=== PATIENT | female | born 1980 | race Caucasian/White ===

== ENCOUNTER 2018-05-17 19:19 | Emergency (ER) | payer SELFPAY ==
[2018-05-17 19:19] VITALS: BP 160/96; PULSE 96; RESP 20; TEMP 37; O2SAT 98; BMI 42.8
--- NOTE | 2018-05-17 19:51 | ED.DCSUM_ITS ---
- ER Visit Summary Date of Service: 05/17/18 Chief Complaint: Sore throat ear pain History of Present Illness: The patient is a 37 F 1 week history of sore throat. Bilateral ear pain today. Sinus pressure and congestion. Nonproductive cough. Subjective fevers. Sick contacts at home. No vomiting or diarrhea. No rash. Tonsillectomy at the age of 16. Physical Examination: General: Alert and oriented ?3, no acute distress HEENT: Normocephalic, atraumatic. Moist mucosa membranes. TMs normal bilaterally. Tonsils absent, posterior pharyngeal erythema. No stridor. No trismus Neck: supple, nontender. Cardiovascular: Regular rate and rhythm, no murmurs Respiratory: Normal breath sounds, symmetric, no distress Abdomen: Soft, nontender, nondistended Extremities: Nontender, no edema, pulses intact ?4 Neuro: no focal neurological deficits. Test Results: Rapid strep: Positive Emergency Department Course and Treatment: Rapid strep positive. Nontoxic. Treated with IM Bicillin. Patient did not want steroids due to having psychosis from it. Also additional URI symptoms. Symptomatic treatment. Follow-up with PCP. Treatment Plan: [] Disposition: Discharge Impression: 1. Strep pharyngitis 2. Upper respiratory infection This note was generated with [employer] dictation software. It may contain incorrect words, spelling, and punctuation that were not noted in review of the chart prior to signing ED Disposition - Plan for ED Patient: Disposition: Home or Assisted Living Chief Complaint: Ear Problem Diagnosis: Strep pharyngitis, Upper respiratory infection Instructions: ED Pharyngitis Strep Conf Ch, ED URI Viral Referrals: Violette Hemphill DO [NON CLINICAL AFFILIATE] - 5-7 Days
[2018-05-17] MEDS: Penicillin G Benzathine 1.2 MU/2 ML Syringe IM (20:43)
[2018-05-17 21:10] VITALS: RESP 16
--- NOTE | 2018-05-17 21:10 | ED.RN ---
no injection reaction.
== END 2018-05-17 21:11 | disposition home or self-care (01) ==
PROVIDERS: Emergency Provider Emergency Medicine; Family Provider Internal Medicine; PCP Internal Medicine
DX: J02.0 Streptococcal pharyngitis (principal); J06.9 Acute upper respiratory infection, unspecified; K21.9 Gastro-esophageal reflux disease without esophagitis; F32.9 Major depressive disorder, single episode, unspecified; Z79.899 Other long term (current) drug therapy
CPT/HCPCS: 87880; 96372; 99282

== ENCOUNTER 2019-11-09 23:41 | Emergency (ER) | payer MEDICAID, SELFPAY ==
[2019-11-09 23:42] VITALS: BP 167/108; PULSE 90; RESP 18; TEMP 37.2; O2SAT 99; BMI 44.3
--- NOTE | 2019-11-10 00:03 | ED.VIS.GEN ---
History of Present Illness Chief Complaint: Nausea/Vomiting Informant: Patient Narrative: Patient presents after having 1 episode of emesis. She is being treated for a clinical pneumonia. She has been on doxycycline as well as Tessalon Perles. She stated she took 8 medications together tonight and felt nauseous soon after and vomited. She wanted to make sure things are okay. She stated her pneumonia is getting better. This was diagnosed at urgent care. She did not have any imaging. She is a non-smoker. No fevers or chills or other symptoms. She does not feel nauseous that much currently. Past Medical History - Allergies and Home Meds Allergies/Adverse Reactions: Allergies erythromycin base [Erythromycin Base] Allergy (Verified 11/09/19 23:44) Vomiting levothyroxine Allergy (Verified 11/09/19 23:45) Rash Primary Care Physician: Ella Abel MD [Primary Care Provider] - Prior records reviewed: Yes Past Medical History: - - Reflux Surgical History: tonsillectomy Lives: With Family Smoking Status: Never smoker Alcohol: None Drugs: None Review of Systems General: Denies: Chills, Fever, Sweats Eyes: Denies: Visual changes - bilaterally, Diplopia ENT: Denies: Rhinorrhea, Sore throat Cardiovascular: Denies: Chest pain, Palpitations Respiratory: Reports: Cough. Denies: Dyspnea, Dyspnea on exertion Gastrointestinal: Reports: Nausea, Vomiting. Denies: Abdominal pain, Diarrhea, Melena, Hematochezia Genitourinary: Denies: Dysuria, Hematuria, Frequency Musculoskeletal: Denies: Back pain, Extremity Pain Skin: Denies: Rash, Wounds Neurological: Denies: Headache, Weakness, Numbness Physical Exam Vital Signs/Narrative: Vital Signs Temp Pulse Resp BP Pulse Ox 11/09/19 23:42 98.9 F 90 18 167/108 H 99 General: Well nourished, Well developed, No Acute Distress Head: Normocephalic, Atraumatic Eyes: Perrl, EOMI ENT: Moist mucous membranes, No rhinorrhea Neck: Supple, Nontender Cardiovascular: Regular rate, Regular rhythm, No murmurs Respiratory: No distress, CTA bilaterally, Chest nontender Abdomen: Soft, Nontender, Nondistended, Normal bowel sounds Back: Nontender, Normal Inspection Extremities: Nontender, No edema Skin: Normal color, No rash Neurological: Alert, Oriented x3, Cranial nerves II-XII grossly intact, Normal Strength, Normal Sensation Psychological: Normal affect, Normal Mood Diagnostic/Tx/Re-eval - Medical Decision Making This time I think the patient likely has nausea from taking all her medications at once. She took 8 pills. She was given Zofran. I do not feel she needs lab work or imaging. She will follow-up as an outpatient ED Disposition - Plan for ED Patient: Diagnosis: Vomiting alone Instructions: VOMITING (4y-Adult) Prescriptions: Ondansetron [Zofran Odt] 4 mg PO Q8H PRN PRN #10 tab PRN Reason: Nausea Prescription Printed Referrals: Ella Abel MD [Primary Care Provider] -
[2019-11-10] MEDS: Ondansetron ODT 4 MG Tablet 8 MG PO (00:18)
[2019-11-10 00:20] VITALS: RESP 16
== END 2019-11-10 00:24 | disposition home or self-care (01) ==
LOC: ED 11-10 00:13
PROVIDERS: Emergency Provider Emergency Medicine; Family Provider Nurse Practitioner Family; PCP Nurse Practitioner Family
DX: R11.10 Vomiting, unspecified (principal); K21.9 Gastro-esophageal reflux disease without esophagitis
CPT/HCPCS: 99283

== ENCOUNTER → 2020-02-07 12:44 | Outpatient (CLI) | payer MEDICAID, SELFPAY ==
--- NOTE | 2020-02-07 12:49 | CT_ITS ---
STUDY: CT MAXILLOFACIAL SINUSES REASON FOR EXAM: Female, 39 years old. Sinusitis x 6 months, right side worse, ears feel and quot;clogged and quot;, antibiotics x 8. Hx hypertension, no prior surgery. [facility] navigation protocol RADIATION DOSAGE (If Supplied By Facility): CTDIvol = ( 33.45 ) mGy, DLP = ( 793.09 ) mGycm TECHNIQUE: The patient was scanned in a multi detector CT scanner. High resolution axial imaging was performed without the administration of intravenous contrast material. Sagittal and coronal images were reconstructed. Individualized dose optimization techniques were used for this CT. COMPARISON: None. FINDINGS: FRONTAL SINUSES: Normal aeration, without mucosal inflammatory disease. ETHMOIDAL SINUSES: Partial opacification of the ethmoid sinuses worse on the right side. MAXILLARY SINUSES: Partial opacification of the maxillary sinuses bilaterally worse on the right side. SPHENOIDAL SINUSES: Normal aeration, without mucosal inflammatory disease. There is compromise of the left ostiomeatal complex due to mucosal hypertrophy on the left side. 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 There is a adriane bullosa of the right middle turbinate. Normal bilateral inferior turbinates. Normal midline nasal septum. There is patency of the bilateral nasal airways. The visualized osseous structures are normal. The visualized bilateral orbital contents are normal. CT/Sinus/Facial Bone IMPRESSION: Partial opacification of ethmoid sinuses worse on the right side. Partial opacification of maxillary sinuses worse on the right side. 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 Compromise of the ostiomeatal complexes bilaterally as described. Electronically Signed: Donato Napoles, at 13:46 EDT , Service support ,
== END ==
PROVIDERS: Referring Provider Otolaryngology; Visit Provider Otolaryngology
DX: J32.2 Chronic ethmoidal sinusitis (principal)
CPT/HCPCS: 70486

== ENCOUNTER → 2020-04-24 | Outpatient (CLI) | payer MEDICAID, SELFPAY ==
--- NOTE | 2020-04-24 14:37 | RAD_ITS ---
STUDY: X-RAY CHEST REASON FOR EXAM: Female, 39 years old. Shortness of breath. TECHNIQUE: PA and lateral views of the chest. COMPARISON: Comparison is made with prior study dated June 17, 2010. FINDINGS: The lungs are clear and expanded. There is no demonstrated pleural abnormality. Normal size heart. Normal mediastinum and huber. Normal visualized pulmonary arteries. Normal visualized aortic arch and descending thoracic aorta. There are mild degenerative changes of the visualized thoracic spine. Normal visualized ribs, clavicles, and shoulders. There is no demonstrated abnormality of the visualized soft tissue structures of the upper abdomen. RAD/Chest PA and Lateral IMPRESSION: Normal x-ray examination of the chest. Electronically Signed: Donato Napoles, at 15:32 EDT , Service support ,
[2020-04-24 15:35] LABS: Absolute Lymphocyte Count 2.75 X10^3/uL (0.83-4.51); Absolute Neutrophil Count 5.2 X10^3/uL (2.0-7.7); Basophil# 0.02 X10^3/uL; Basophil% 0.2 % (0-1); Eosinophil# 0.17 X10^3/uL; Eosinophils% 1.9 % (0-5); Hemoglobin 13.8 g/dL (12.0-15.0); Lymphocyte # 2.75 X10^3/ul (4.0); Lymphocyte % 31.5 % (19-41); Mean Corp Hgb Conc 32.1 g/dL (32-36); Mean Corpuscular Hgb 30.9 pg (27.0-32.0); Mean Corpuscular Volume 96.2 fL (81-99); Monocyte# 0.57 X10^3/uL; Monocyte% 6.5 % (0-10); NRBC Flagged by Analyzer 0 % (0-5); Neutrophil # 5.19 X10^3/uL (2.7-7.7); Neutrophil % 59.6 % (47-70); Platelet Count 311 K/mm3 (150-450); RBC Distribution Width SD 42.4 fl (35.1-43.9); Red Blood Count 4.47 M/mm3 (4.2-5.4); White Blood Count 8.7 K/mm3 (4.4-11.0)
[2020-04-24 16:03] LABS: Vitamin D,25 Hydroxy 27.8 ng/mL
[2020-04-27 20:07] LABS: Immunoglobulin A 126 mg/dL (87-352); Immunoglobulin G 942 mg/dL (586-1602); Immunoglobulin M 118 mg/dL (26-217)
[2020-04-28 00:26] LABS: Immunoglobulin E 3 IU/mL (6-495)
== END | disposition home or self-care (01) ==
PROVIDERS: Referring Provider Specialist; Visit Provider Specialist
DX: D84.9 Immunodeficiency, unspecified (principal); R05 Cough
CPT/HCPCS: 36415; 71046; 82306; 82784; 82785; 85025

== ENCOUNTER → 2020-07-31 | Outpatient (CLI) | payer MEDICAID, SELFPAY ==
[2020-08-02 14:26] LABS: Complement CH50 > 60 U/mL (>41)
== END | disposition home or self-care (01) ==
LOC: LAB 16:05
PROVIDERS: Visit Provider Specialist
DX: D84.9 Immunodeficiency, unspecified (principal)
CPT/HCPCS: 36415; 86162

== ENCOUNTER → 2021-02-07 15:33 | Outpatient (CLI) | payer MEDICAID, SELFPAY ==
[2021-02-07 17:12] LABS: Microalbumin,Random Urine 6.9 mg/L (NO RANGE EST.); Microalbumin:Creatinine Ratio 11.8 mg/g CRE (<30 mg/g CRE)
[2021-02-09 12:09] LABS: Thyroid Peroxidase AB < 9 IU/mL (0-34)
== END ==
PROVIDERS: Visit Provider Family Medicine
DX: I10 Essential (primary) hypertension (principal); E78.5 Hyperlipidemia, unspecified; F33.1 Major depressive disorder, recurrent, moderate
CPT/HCPCS: 36415; 82043; 82570; 86376

== ENCOUNTER 2022-01-27 15:55 | Outpatient (CLI) | payer MEDICAID, SELFPAY ==
[2022-01-27 17:30] LABS: Absolute Lymphocyte Count 2.69 X10^3/uL (0.83-4.51); Absolute Neutrophil Count 4.8 X10^3/uL (2.0-7.7); Basophil# 0.02 X10^3/uL; Basophil% 0.2 % (0-1); Eosinophil# 0.14 X10^3/uL; Eosinophils% 1.7 % (0-5); Hemoglobin 13.9 g/dL (12.0-15.0); Lymphocyte # 2.69 X10^3/ul (0.83-4.51); Mean Corp Hgb Conc 33.1 g/dL (32-36); Mean Corpuscular Hgb 30.4 pg (27.0-32.0); Mean Corpuscular Volume 91.9 fL (81-99); Mean Platelet Vol. 11.1 fl (6.2-12.0); Monocyte# 0.49 X10^3/uL; NRBC Flagged by Analyzer 0 % (0-5); Neutrophil # 4.78 X10^3/uL (2.7-7.7); Neutrophil % 58.7 % (47-70); Platelet Count 299 K/mm3 (150-450); RBC Distribution Width SD 40.7 fl (35.1-43.9); Red Blood Count 4.57 M/mm3 (4.2-5.4); White Blood Count 8.2 K/mm3 (4.4-11.0)
[2022-01-27 17:40] LABS: Hemoglobin A1c 5.2 % (3.8-5.6)
[2022-01-27 17:50] LABS: AST(SGOT) 16 U/L (15-37); Alanine Aminotransfer ALT/SGPT 16 U/L (13-56); Albumin, Serum 3.5 g/dL (3.2-5.0); Alkaline Phosphatase 84 U/L (45-117); Anion Gap 6 (5-15); BUN 8 mg/dL (7-18); BUN/Creat Ratio 11.2 RATIO (10-20); Chloride 107 mmol/L (98-107); Cholesterol 187 mg/dL (200); Creatinine, Serum 0.71 mg/dL (0.55-1.02); EST Glomerular Filtration Rate 95 mL/min (>60); Est Glom Filt Rate - Afr Amer 115 mL/min (>60); Globulin 3.6 g/dL (2.2-4.2); Glucose 80 mg/dL (74-106); High Density Lipoprotein 26 mg/dL; Potassium 3.8 mmol/L (3.5-5.1); Protein, Total 7.1 g/dL (6.4-8.2); Sodium Level 139 mmol/L (136-145); Thyroid Stim Hormone (TSH) 1.08 uIU/mL (0.358-3.74); Triglycerides 219 mg/dL; Very Low Density Lipoprotein 44 mg/dL (5-40)
== END 2022-01-27 23:59 | disposition home or self-care (01) ==
LOC: LAB 15:57
PROVIDERS: Visit Provider Nurse Practitioner Adult Health
DX: I10 Essential (primary) hypertension (principal); Z68.42 Body mass index [BMI] 45.0-49.9, adult; E03.9 Hypothyroidism, unspecified; E78.2 Mixed hyperlipidemia; E66.9 Obesity, unspecified
CPT/HCPCS: 36415; 80053; 80061; 83036; 84443; 85025

== ENCOUNTER 2023-04-15 17:03 | Emergency (ER) | payer MEDICAID, SELFPAY ==
[2023-04-15 17:05] VITALS: BP 172/77; PULSE 91; RESP 16; TEMP 36.6; O2SAT 99; BMI 48.6
[2023-04-15 18:13] VITALS: BP 156/84; PULSE 79; RESP 16; O2SAT 98
--- NOTE | 2023-04-15 18:21 | EDS_ITS ---
HPI HPI - Female History of Present Illness Chief Complaint: Female C/O Pain Pain: Positive for Pelvic Pain Onset: Today Context: Gradual Onset Timing: Intermittent Quality: Positive for Cramping Location: Suprapubic Bleeding Current Severity: Spotting Associated Symptoms Associated Symptoms: Negative for Dysuria, Frequency or Hematuria Narrative Narrative: Patient presents to have Mirena IUD removed. Patient states she went to [facility] today where they were unable to remove her IUD and then she was referred to the emergency department. Patient states this was placed in March 2015. Patient states she has been having some spotting today. Patient states she was having some cramping prior to arrival but states this has resolved. Patient denies any fevers or chills. Patient states nothing makes it worse and nothing makes it better. [facility] Medical History (Updated 04/15/23 @ 20:[address] Ori Orta, ) Anxiety Depression GERD (gastroesophageal reflux disease) Hypertension Home Medications fluoxetine 20 mg capsule 40 mg PO DAILY 12/25/13 [History Last Taken Unknown] esomeprazole magnesium 20 mg capsule,delayed release (Nexium) 20 mg PO DAILY 05/17/18 [History Last Taken Unknown] buspirone 10 mg tablet 10 mg PO BID 04/15/23 [History Last Taken Unknown] cetirizine 10 mg tablet (Zyrtec) 10 mg PO DAILY 04/15/23 [History Last Taken Unknown] cholecalciferol (vitamin D3) 25 mcg (1,000 unit) chewable tablet (Vitamin D3) 25 mcg PO DAILY 04/15/23 [History Last Taken Unknown] cranberry 1,000 mg capsule 4,200 mg PO DAILY 04/15/23 [History Last Taken Unknown] docusate sodium 100 mg capsule (Colace) 100 mg PO DAILY 04/15/23 [History Last Taken Unknown] hydroxyzine HCl 50 mg tablet 50 mg PO QHS 04/15/23 [History Last Taken Unknown] losartan 50 mg tablet 50 mg PO DAILY 04/15/23 [History Last Taken Unknown] melatonin 1 mg tablet 1 mg PO QHS 04/15/23 [History Last Taken Unknown] potassium 95 mg tablet 99 mg PO DAILY 04/15/23 [History Last Taken Unknown] zinc 50 mg tablet 50 mg PO DAILY 04/15/23 [History Last Taken Unknown] Allergy/AdvReac Type Severity Reaction Status Date / Time levothyroxine Allergy Rash Verified 04/15/23 17:05 Surgical History (Updated 04/15/23 @ 18:[address] Ori Orta DO) Hx of foot surgery Hx of tonsillectomy Social History Smoking Status: Never smoker ROS ROS ED Constitutional Constitutional ED: Denies chills or fever(s) Eyes Eyes: Denies blurry vision or change in vision ENT ENT ED: Denies rhinorrhea or sore throat Cardiovascular Cardiovascular: Denies chest pain or palpitations Respiratory/Chest Respiratory/Chest: Denies cough or dyspnea Gastrointestinal Gastrointestinal: Reports abdominal pain; Denies nausea or vomiting Genitourinary Genitourinary ED: Denies dysuria or hematuria Musculoskeletal Musculoskeletal: Denies back pain or neck pain Integumentary Denies abscess or rash Neurologic Neurologic: Denies headache(s) or weakness Allergic/Immunologic Allergic/Immunologic ED: Denies mouth swelling or urticaria EXAM Physical Exam Const Vital Signs: 04/15/23 17:05 04/15/23 18:13 Temperature 97.9 F Temperature Source Temporal Pulse Rate 91 79 Respiratory Rate 16 16 Blood Pressure 172/77 H 156/84 H Blood Pressure Mean 108 108 Pulse Ox 99 98 Oxygen Delivery Method Room Air Room Air Positive well nourished, well developed and obese General Appearance ED: well developed and NAD Nutritional Appearance: obese HEENT Reports moist mucous membranes Neck supple and no JVD Resp normal respiratory effort and clear to auscultation bilaterally Cardio regular rate, regular rhythm and no murmurs GI normal to inspection, nondistended, normoactive bowel sounds and non-tender Palpation: soft Extremity normal to inspection General Extremety ED: Negative for edema or tenderness General Extremity: Negative for edema Neuro oriented x3, CN's II-XII intact bilaterally and no sensory deficits noted Sensorium / Orientation: alert Motor Exam: strength 5/5 throughout Psych mental status grossly normal Skin no rashes or lesions noted MDM MDM MDM Narrative Medical decision making narrative: Differential diagnosis includes , embedded IUD, and pelvic pain. Serum hCG will be obtained to assess for . CBC will be obtained to assess for anemia and leukocytosis. Lab Data Lab results narrative: CBC was reviewed and was within normal limits. Serum hCG was reviewed and was negative. Labs: Laboratory Results - last 24 hr 04/15/23 04/15/23 18:40 18:40 WBC 9.7 RBC 4.40 Hgb 13.2 Hct 41.1 MCV 93.4 MCH 30.0 MCHC 32.1 RDW Std Deviation 41.0 RDW Coeff of Dimas 11.9 Plt Count 293 MPV 10.0 Immature Gran % (Auto) 0.500 Neut % (Auto) 66.2 Lymph % (Auto) 24.8 [place] % (Auto) 6.3 Eos % (Auto) 1.8 Baso % (Auto) 0.4 Absolute Neuts (auto) 6.4 Absolute Lymphs (auto) 2.40 Nucleated RBC % 0 Serum , Qual NEGATIVE Treatment and Re-Evaluation Narrative: Chaperoned pelvic exam was performed with female nurse present. The strings from the IUD were visualized. They were grabbed with ring forceps. The IUD was removed intact. There is some mild bleeding after the procedure. Patient tolerated the procedure well. Patient was advised of her findings. Patient was instructed to follow-up with an TECHNICAL MARKETING CONSULTANT in 5 to 7 days. Patient understood and was agreeable with the plan. All questions were answered. Discharge Plan Triage Chief Complaint: Female C/O ED Provider: Ori Orta Dx/Rx/DC Orders Clinical Impression: Retained intrauterine contraceptive device (IUD) Instructions: ED FOREIGN BODY Vaginal Adult Prescriptions: No Action fluoxetine 20 MG capsule 40 mg PO DAILY esomeprazole magnesium [Nexium] 20 MG capsule 20 mg PO DAILY losartan 50 mg Tablet 50 mg PO DAILY cetirizine [Zyrtec] 10 mg Tablet 10 mg PO DAILY hydroxyzine HCl 50 mg Tablet 50 mg PO QHS potassium 95 mg Tablet 99 mg PO DAILY buspirone 10 mg Tablet 10 mg PO BID docusate sodium [Colace] 100 mg Capsule 100 mg PO DAILY zinc 50 mg Tablet 50 mg PO DAILY cranberry 1,000 mg Capsule 4,200 mg PO DAILY Rx Instructions: administer with a meal melatonin 1 mg Tablet 1 mg PO QHS cholecalciferol (vitamin D3) [Vitamin D3] 25 mcg (1,000 unit) Tablet,Chewable 25 mcg PO DAILY Primary Care Provider: Sarai Arias NP Referrals: Ruby Stapleton MD [Med Staff - Active Staff] - 5-7 Days Sarai Arias NP, [facility] [Primary Care Provider] - 5-7 Days Disposition Disposition: Home, Self Care
[2023-04-15 18:45] LABS: Absolute Neutrophil Count 6.4 X10^3/uL (2.0-7.7); Basophil# 0.04 X10^3/uL; Basophil% 0.4 % (0-1); Eosinophil# 0.17 X10^3/uL; Eosinophils% 1.8 % (0-5); Hematocrit 41.1 % (37-47); Hemoglobin 13.2 g/dL (12.0-15.0); Lymphocyte % 24.8 % (19-41); Mean Corp Hgb Conc 32.1 g/dL (32-36); Mean Corpuscular Volume 93.4 fL (81-99); Monocyte# 0.61 X10^3/uL; Monocyte% 6.3 % (0-10); NRBC Flagged by Analyzer 0 % (0-5); Neutrophil # 6.39 X10^3/uL (2.7-7.7); Neutrophil % 66.2 % (47-70); Platelet Count 293 K/mm3 (150-450); RBC Distribution Width CV 11.9 % (11.6-14.6); White Blood Count 9.7 K/mm3 (4.4-11.0)
[2023-04-15 19:12] LABS: Internal QC Validated? YES +Cl - CLEAR BKGD; Pregnancy, Serum, hCG Quali. NEGATIVE Negative
[2023-04-15 20:19] VITALS: BP 161/91; PULSE 87; RESP 16; O2SAT 97
== END 2023-04-15 20:24 | disposition home or self-care (01) ==
PROVIDERS: Emergency Provider Emergency Medicine; PCP Nurse Practitioner Family; Visit Provider Emergency Medicine
DX: Z30.432 Encounter for removal of intrauterine contraceptive device (principal); T83.84XA Pain due to genitourinary prosthetic devices, implants and grafts, initial encounter; I10 Essential (primary) hypertension
CPT/HCPCS: 84703; 85025; 99282